=== PATIENT | male | born 1960 | race Caucasian/White ===

== ENCOUNTER 2019-06-26 09:47 | Day surgery (SDC) | payer BC ==
[~2019-06-26] VITALS: Ht 176.5 cm; Wt 129.7 kg
[2019-06-26] VITALS (11 sets, daily range): BP systolic 135–144; BP diastolic 79–89; PULSE 69–85; TEMP 98
[2019-06-26 10:18] LABS: HEMATOCRIT 45.7 % (42.0-52.0); HEMOGLOBIN 14.8 g/dl (13.5-18.0); MEAN CELL VOLUME 81 fl (80.0-100.0); MEAN CORPUSCULAR HEMOGLOBIN 26 pg (27.0-31.0); MEAN CORPUSCULAR HGB CONC 32 g/dl (33.0-37.0); MEAN PLATELET VOLUME 8.4 fl (7.4-10.4); PLATELET COUNT 222 K/mm3 (130-400); RED BLOOD COUNT 5.65 M/mm3 (4.20-5.60); REDCELL DISTRIBUTION WIDTH-CV 13.7 % (11.5-14.5)
[2019-06-26 10:24] LABS: PROTHROMBIN TIME 11.1 SECONDS (9.7-12.8)
[2019-06-26 10:36] LABS: CALCIUM 9.5 mg/dL (8.4-10.2); CREATININE, serum 0.78 (0.66-1.25); POTASSIUM 4.2 mmol/L (3.4-5.0)
[2019-06-26] MEDS ORDERED: FLOMAX 0.40.4 MG/CAP PO (10:41)
[2019-06-26] MEDS ORDERED: COZAAR100 MG PO (10:41)
[2019-06-26] MEDS ORDERED: CADUET 10 MG-101 TAB PO (10:41)
[2019-06-26] MEDS ORDERED: CENTRUM SILVER1 TAB PO (10:43)
[2019-06-26] MEDS ORDERED: EPA FISH OIL1 SGL PO (10:46)
--- NOTE | 2019-06-26 12:56 | NUR ---
SEE MERGE FOR MEDICATION ADMINISTRATION AND INTRA AND POST OP SEDATION ASSESSMENT
[2019-06-26] MEDS ORDERED: LIPITOR20 MG PO (13:28)
[2019-06-26] MEDS ORDERED: ASPIRIN 81M81 MG/TA2 PO (13:28)
--- NOTE | 2019-06-26 17:00 | NUR ---
Discharge instructions gien to pt.pt verbalizes understading.INT removed,catheter tip intact.pt escorted out via wheelchair by this nurse.
== END 2019-06-26 17:24 | disposition home or self-care (01) ==
LOC: COL.CAR 09:47
PROVIDERS: Internal Medicine Cardiovascular Disease
DX: I25.119 Atherosclerotic heart disease of native coronary artery with unspecified angina pectoris (principal); I10 Essential (primary) hypertension; E78.5 Hyperlipidemia, unspecified; Z82.49 Family history of ischemic heart disease and other diseases of the circulatory system; Z88.5 Allergy status to narcotic agent
CPT/HCPCS: J1644; J2250; J3010; Q9967